=== PATIENT | female | born 1935 | race Caucasian/White ===

== ENCOUNTER 2016-11-02 10:44 | Emergency (ER) | payer MEDICARE ==
[2016-11-02 11:24] LABS: Hematocrit 44 % (35-47); Hemoglobin 14.5 g/dl (12.0-16.0); Mean Corpuscular HGB Conc 33 g/dl (31-36); Mean Corpuscular Hemoglobin 29 pg (27-31); Mean Corpuscular Volume 88 fL (80-97); Mean Platelet Volume 10 um3 (7.4-10.4); Red Blood Count 5.05 10^6/ul (4.0-5.4); Red Cell Distribution Width 14 % (10.5-15)
[2016-11-02 11:34] LABS: BUN/Creatinine Ratio 16.7 (8-20); Calcium 9.1 mg/dL (8.6-10.3); EGFR African American 99.7 (>60); EGFR Non-African American 77.5 (>60); Globulin 3.4 g/dL (2-4); Magnesium 2.1 mg/dL (1.9-2.7); Potassium 4.3 mmol/L (3.5-5.0); Total Bilirubin 0.4 mg/dL (0.2-1.0); Total Protein 7.4 g/dL (6.4-8.9)
[2016-11-02 11:36] LABS: Troponin I 0.01 ng/mL (<0.04)
--- NOTE | 2016-11-02 11:38 | RAD ---
INDICATION: Head injury. COMPARISON: There is is made with a prior CT of the brain from December 01, 2014. TECHNIQUE: Contiguous axial sections of the brain were obtained from the skull base to the vertex without contrast. FINDINGS: The ventricles, cisterns and sulci are enlarged consistent with diffuse atrophy. There are small areas of decreased density in the subcortical and periventricular white matter suggestive of mild chronic small vessel ischemic changes. No other focal abnormality or mass effect is seen. There is no evidence for hemorrhage. No significant focal osseous abnormality is seen. The visualized portion of the paranasal sinuses and mastoid air cells appear clear. IMPRESSION: NO EVIDENCE FOR ACUTE INTRACRANIAL ABNORMALITY.
--- NOTE | 2016-11-02 11:53 | RAD ---
INDICATION: Cough. COMPARISON: There are no prior studies available for comparison. TECHNIQUE: Dual-energy PA and lateral views of the chest were obtained. FINDINGS: The heart is within normal limits in size. Mediastinal and hilar contours appear within normal limits. The lungs are clear. No pleural effusion is present. IMPRESSION: NO EVIDENCE FOR ACTIVE CARDIOPULMONARY DISEASE.
[2016-11-02] MEDS ORDERED: NS 0.9% 1000 ML* 1,000 ML IV ONE (11:57)
[2016-11-02 12:16] LABS: TSH (Thyroid Stimulating Horm) 1.33 mcIU/mL (0.34-5.60)
[2016-11-02 12:16] LABS: Urine Bacteria Absent (Absent); Urine Bilirubin Negative (Negative); Urine Glucose Negative (Negative); Urine Nitrite Negative (Negative)
[2016-11-02 14:07] VITALS: BP 135/55
--- NOTE | 2016-11-02 14:07 | ED ---
Jose Garcia SooYoung, scribed for Nathan Guillen MD on 11/02/16 at 1126 . Syncope/Near Syncope - HPI Summary HPI Summary: An 81 y/o F presents to ED with SARABIA onset three days ago. Pt had a unwitnessed syncopal episode with LOC three days ago. Pt states that she woke up at approx 0500 to use the bathroom, and she regained consciousness and was on the floor. After coming to, sx included vomiting, SARABIA. She denies nausea prior to syncope. She's been resting for the past few days, but is still experiencing SARABIA, n/v, soreness and bruising of L hip. According to daughter, pt also complained of "heaviness" in her head, and visual changes. Pt has baseline stiff neck due to her RA. - History Of Current Complaint Chief Complaint: EDSyncope Time Seen by Provider: 11/02/16 10:57 Hx Obtained From: Patient, Family/Advertising Traffic Manager Onset/Duration: Sudden Onset, Still Present - n/v, SARABIA, Resolved - syncope Timing: Constant - n/v, SARABIA Context: Unwitnessed, Loss Of Consciousness Activity At Onset: At Rest Associated Signs And Symptoms: Vomiting, Other - POS: pain and bruising of L hip , visual changes - Allergies/Home Medications Allergies/Adverse Reactions: Allergies Allergy/AdvReac Type Severity Reaction Status Date / Time Sulfa Drugs Allergy Severe Unknown Verified 11/01/13 12:00 Reaction Details Fentanyl Allergy Unknown Verified 11/01/13 12:00 Reaction Details Lisinopril Allergy Coughing Verified 11/01/13 12:03 Ondansetron [From Zofran] Allergy Unknown Verified 11/01/13 12:00 Reaction Details PMH/Surg Hx/FS Hx/Imm Hx Previously Healthy: No Endocrine/Hematology History: Reports: Hx Anemia - MANY YEARS AGO Denies: Hx Diabetes Cardiovascular History: Reports: Hx Hypertension Denies: Hx Pacemaker/ICD, Other Cardiovascular Problems/Disorders Respiratory History: Denies: Hx Asthma, Other Respiratory Problems/Disorders GI History: Denies: Other GI Disorders History: Denies: Hx Dialysis, Hx Renal Disease Musculoskeletal History: Reports: Hx Arthritis - ALL OVER, Hx Rheumatoid Arthritis Denies: Other Musculoskeletal History Sensory History: Reports: Hx Cataracts - SURGERY RIGHT EYE, Hx Contacts or Glasses - GLASSES, Hx Glaucoma Denies: Hx Hearing Aid Opthamlomology History: Reports: Hx Cataracts - SURGERY RIGHT EYE, Hx Contacts or Glasses - GLASSES, Hx Glaucoma Neurological History: Reports: Other Neuro Impairments/Disorders - BLURRED VISION LEFT EYE Psychiatric History: Denies: Hx Panic Disorder - Cancer History Hx Chemotherapy: No Hx Radiation Therapy: No - Surgical History Surgery Procedure, Year, and Place: veins stripped bilat legs;. hysterectomy;. cataract RIGHT EYE. PLASTIC TEAR DUCT RIGHT EYE - DR. 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 ANY METAL ASPECT OF IMPLANT; PT CLEARED. FOR MRI VIA ORBIT X-RAYS 08/26/13. 1944, RIGHT ARM FX Hx Anesthesia Reactions: - N/V Infectious Disease History: No Infectious Disease History: Reports: Hx Shingles Denies: History Other Infectious Disease, Traveled Outside the in Last 30 Days - Family History Known Family History: Positive: Other - POS: breast CA, anaesthesia reaction (n/ v) - Social History Occupation: Retired Lives: With Family Alcohol Use: None Hx Substance Use: No Substance Use Type: Reports: None Review of Systems Positive: Other - pos: "visual changes" unspecified per daughter Positive: Vomiting, Nausea Positive: Other - pos: soreness, bruising of L hip Positive: Headache, Syncope All Other Systems Reviewed And Are Negative: Yes Physical Exam Triage Information Reviewed: Yes Vital Signs On Initial Exam: Initial Vitals Temp Pulse Resp BP Pulse Ox 98.7 F 67 15 140/65 97 11/02/16 10:46 11/02/16 10:46 11/02/16 10:46 11/02/16 10:46 11/02/16 10:46 Vital Signs Reviewed: Yes Appearance: Positive: Well-Appearing, No Pain Distress Skin: Positive: Warm, Skin Color Reflects Adequate Perfusion, Dry Head/Face: Positive: Normal Head/Face Inspection Eyes: Positive: Normal ENT: Positive: Normal ENT inspection Neck: Positive: Supple, Nontender Respiratory/Lung Sounds: Positive: Clear to Auscultation, Breath Sounds Present Cardiovascular: Positive: RRR Musculoskeletal: Positive: Normal, Other - POS: ECCYHMOSIS TO L BUTTOCK Neurological: Positive: Normal Psychiatric: Positive: Normal, Affect/Mood Appropriate Diagnostics - Vital Signs Vital Signs Temp Pulse Resp BP Pulse Ox 11/02/16 10:46 98.7 F 67 15 140/65 97 - Laboratory Lab Results: Lab Results 11/02/16 11/02/16 11/02/16 Range/Units 11:10 11:10 11:10 WBC 5.0 (3.5-10.8) 10^3/ul RBC 5.05 (4.0-5.4) 10^6/ul Hgb 14.5 (12.0-16.0) g/dl Hct 44 (35-47) % MCV 88 (80-97) fL MCH 29 (27-31) pg MCHC 33 (31-36) g/dl RDW 14 (10.5-15) % Plt Count 210 (150-450) 10^3/ul MPV 10 (7.4-10.4) um3 Neut % (Auto) 50.1 (38-83) % Lymph % (Auto) 31.6 (25-47) % [place] % (Auto) 16.8 H (1-9) % Eos % (Auto) 0.5 (0-6) % Baso % (Auto) 1.0 (0-2) % Absolute Neuts (auto) 2.5 (1.5-7.7) 10^3/ul Absolute Lymphs (auto) 1.6 (1.0-4.8) 10^3/ul Absolute Monos (auto) 0.8 (0-0.8) 10^3/ul Absolute Eos (auto) 0 (0-0.6) 10^3/ul Absolute Basos (auto) 0 (0-0.2) 10^3/ul Absolute Nucleated RBC 0.01 10^3/ul Nucleated RBC % 0.1 INR (Anticoag Therapy) (0.89-1.11) Sodium 134 (133-145) mmol/L Potassium 4.3 (3.5-5.0) mmol/L Chloride 99 L (101-111) mmol/L Carbon Dioxide 29 (22-32) mmol/L Anion Gap 6 (2-11) mmol/L BUN 12 (6-24) mg/dL Creatinine 0.72 (0.51-0.95) mg/dL Est GFR ( Amer) 99.7 (>60) Est GFR (Non-Af Amer) 77.5 (>60) BUN/Creatinine Ratio 16.7 (8-20) Glucose 97 (70-100) mg/dL Lactic Acid 0.9 (0.5-2.0) mmol/L Calcium 9.1 (8.6-10.3) mg/dL Magnesium 2.1 (1.9-2.7) mg/dL Total Bilirubin 0.40 (0.2-1.0) mg/dL AST 24 (13-39) U/L ALT 15 (7-52) U/L Alkaline Phosphatase 55 (34-104) U/L Troponin I 0.01 (<0.04) ng/mL Total Protein 7.4 (6.4-8.9) g/dL Albumin 4.0 (3.2-5.2) g/dL Globulin 3.4 (2-4) g/dL Albumin/Globulin Ratio 1.2 (1-3) TSH 1.33 (0.34-5.60) mcIU/mL Urine Color Urine Appearance Urine pH (5-9) Ur Specific [place] (1.010-1.030) Urine Protein (Negative) Urine Ketones (Negative) Urine Blood (Negative) Urine Nitrate (Negative) Urine Bilirubin (Negative) Urine Urobilinogen (Negative) Ur Leukocyte Esterase (Negative) Urine WBC (Auto) (Absent) Urine RBC (Auto) (Absent) Ur Squamous Epith Cells (Absent) Urine Bacteria (Absent) Urine Glucose (Negative) Urine Ascorbic Acid (Negative) 11/02/16 11/02/16 Range/Units 11:10 12:00 WBC (3.5-10.8) 10^3/ul RBC (4.0-5.4) 10^6/ul Hgb (12.0-16.0) g/dl Hct (35-47) % MCV (80-97) fL MCH (27-31) pg MCHC (31-36) g/dl RDW (10.5-15) % Plt Count (150-450) 10^3/ul MPV (7.4-10.4) um3 Neut % (Auto) (38-83) % Lymph % (Auto) (25-47) % [place] % (Auto) (1-9) % Eos % (Auto) (0-6) % Baso % (Auto) (0-2) % Absolute Neuts (auto) (1.5-7.7) 10^3/ul Absolute Lymphs (auto) (1.0-4.8) 10^3/ul Absolute Monos (auto) (0-0.8) 10^3/ul Absolute Eos (auto) (0-0.6) 10^3/ul Absolute Basos (auto) (0-0.2) 10^3/ul Absolute Nucleated RBC 10^3/ul Nucleated RBC % INR (Anticoag Therapy) 2.25 H (0.89-1.11) Sodium (133-145) mmol/L Potassium (3.5-5.0) mmol/L Chloride (101-111) mmol/L Carbon Dioxide (22-32) mmol/L Anion Gap (2-11) mmol/L BUN (6-24) mg/dL Creatinine (0.51-0.95) mg/dL Est GFR ( Amer) (>60) Est GFR (Non-Af Amer) (>60) BUN/Creatinine Ratio (8-20) Glucose (70-100) mg/dL Lactic Acid (0.5-2.0) mmol/L Calcium (8.6-10.3) mg/dL Magnesium (1.9-2.7) mg/dL Total Bilirubin (0.2-1.0) mg/dL AST (13-39) U/L ALT (7-52) U/L Alkaline Phosphatase (34-104) U/L Troponin I (<0.04) ng/mL Total Protein (6.4-8.9) g/dL Albumin (3.2-5.2) g/dL Globulin (2-4) g/dL Albumin/Globulin Ratio (1-3) TSH (0.34-5.60) mcIU/mL Urine Color Yellow Urine Appearance Clear Urine pH 5.0 (5-9) Ur Specific [place] 1.020 (1.010-1.030) Urine Protein 1+(30 mg/dl) H (Negative) Urine Ketones Trace H (Negative) Urine Blood 1+ H (Negative) Urine Nitrate Negative (Negative) Urine Bilirubin Negative (Negative) Urine Urobilinogen Negative (Negative) Ur Leukocyte Esterase 2+ H (Negative) Urine WBC (Auto) 2+(11-20/hpf) H (Absent) Urine RBC (Auto) 1+(3-5/hpf) H (Absent) Ur Squamous Epith Cells Present H (Absent) Urine Bacteria Absent (Absent) Urine Glucose Negative (Negative) Urine Ascorbic Acid * H (Negative) Result Diagrams: 11/02/16 11:10 11/02/16 11:10 Lab Statement: Any lab studies that have been ordered have been reviewed, and results considered in the medical decision making process. - Radiology CXR Xray Interpretation: No Acute Changes - IMPRESSION: No evidence for active cardiopulmonary dz Radiology Interpretation Completed By: Radiologist - CT BRAIN CT CT Interpretation: No Acute Changes - IMPRESSION: No evidence for acute intra- cranial abnormality CT Interpretation Completed By: Radiologist - EKG 1 EKG Rhythm: Sinus Rhythm ST Segment: Non-Specific Re-Evaluation - Re-Evaluation 1 Re-Evaluation Time: 13:53 Change: Improved Comment: Discussing results with pt. Course/Dx Course Of Treatment: Ms. Bennett had a syncopal episode three days ago and woke up with N/V and a headache which she has had since. She was orthostatic and felt better after fluids. Her W/U was normal except for an equivocal urine that has been sent for C&S. She refused any antiemetic at D/C. - Diagnoses Provider Diagnoses: Dehydration, Head injury, Syncope and collapse Discharge - Discharge Plan Condition: Stable Disposition: HOME Patient Education Materials: Dehydration (ED), Head Injury (ED) Referrals: Davian GARCIAPYessy [Primary Care Provider] - Additional Instructions: Please return to ED if you experience new or worsening symptoms. The documentation as recorded by the Jose payan SooYoung accurately reflects the service I personally performed and the decisions made by me, Nathan Guillen MD.
== END 2016-11-02 14:16 | disposition home or self-care (01) ==
LOC: ED 10:44
DX: S09.90XA Unspecified injury of head, initial encounter (principal); R55 Syncope and collapse; R51 Headache; R11.2 Nausea with vomiting, unspecified; E86.0 Dehydration; X58.XXXA Exposure to other specified factors, initial encounter; Y93.9 Activity, unspecified; Y92.9 Unspecified place or not applicable
CPT/HCPCS: 36415; 70450; 71020; 80053; 81003; 81015; 83605; 83735; 84443; 84484; 85025; 85610; 87086; 93005; 96360; 99283

== ENCOUNTER 2017-08-09 11:45 | Emergency (ER) | payer MEDICARE ==
--- NOTE | 2017-08-09 12:13 | ED ---
Lower Extremity - HPI Summary HPI Summary: 82 female presents to ED with complaints of left knee pain that began yesterday after a fall. Patient states she was walking down steps in her garage when she slipped and fell forward onto her knees. States she was able to get up, bear weight and walk, however it worsened the pain. Patient states the pain increased this morning upon waking, is able to walk but causes pain to the front of her knee. Admits to swelling and bruising. Denies any other injuries from the fall. However when patient was attempting to use the bathroom early this morning she was unable due to pain and had to use a waste basket by her bed. She was holding herself up with her arms and hurt her left shoulder from that. States the shoulder pain worsens with movement. No other complaints. Has not taken any medication. Denies hitting head/LOC. Is taking Warfarin. Denies numbness/tingling. Denies abdominal pain, nausea, vomiting. - History of Current Complaint Chief Complaint: EDExtremityLower Stated Complaint: FALL LEFT KNEE PAIN Time Seen by Provider: 08/09/17 12:12 Hx Obtained From: Patient Mechanism Of Injury: Direct Blow Onset of Pain: Minutes Onset/Duration: Worse Since - yesterday Severity Initially: Mild Severity Currently: Moderate Pain Intensity: 7 Pain Scale Used: 0-10 Numeric Timing: Constant Location: Is Discrete @ - anterior left knee Character Of Pain: Sharp, Aching Associated Signs And Symptoms: Positive: Swelling, Bruising, Knee Pain - left Aggravating Factor(s): Standing, Ambulation, Movement - bending, Weight Bearing , Other - palaption Able to Bear Weight: Yes - however painful Legs: 1 - pain - Allergies/Home Medications Allergies/Adverse Reactions: Allergies Allergy/AdvReac Type Severity Reaction Status Date / Time Sulfa Drugs Allergy Severe Unknown Verified 11/01/13 12:00 Reaction Details Fentanyl Allergy Unknown Verified 11/01/13 12:00 Reaction Details Lisinopril Allergy Coughing Verified 11/01/13 12:03 Ondansetron [From Zofran] Allergy Unknown Verified 11/01/13 12:00 Reaction Details PMH/Surg Hx/FS Hx/Imm Hx Endocrine/Hematology History: Reports: Hx Anemia - MANY YEARS AGO Denies: Hx Diabetes Cardiovascular History: Reports: Hx Atrial Fibrillation, Hx Hypertension Denies: Hx Pacemaker/ICD, Other Cardiovascular Problems/Disorders Respiratory History: Denies: Hx Asthma, Other Respiratory Problems/Disorders GI History: Denies: Other GI Disorders History: Denies: Hx Dialysis, Hx Renal Disease Musculoskeletal History: Reports: Hx Arthritis - ALL OVER, Hx Rheumatoid Arthritis Denies: Other Musculoskeletal History Sensory History: Reports: Hx Cataracts - SURGERY RIGHT EYE, Hx Contacts or Glasses - GLASSES, Hx Glaucoma Denies: Hx Hearing Aid Opthamlomology History: Reports: Hx Cataracts - SURGERY RIGHT EYE, Hx Contacts or Glasses - GLASSES, Hx Glaucoma Neurological History: Reports: Other Neuro Impairments/Disorders - BLURRED VISION LEFT EYE Psychiatric History: Denies: Hx Panic Disorder - Cancer History Hx Chemotherapy: No Hx Radiation Therapy: No - Surgical History Surgery Procedure, Year, and Place: veins stripped bilat legs;. hysterectomy;. cataract RIGHT EYE. PLASTIC TEAR DUCT RIGHT EYE - DR. 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 ANY METAL ASPECT OF IMPLANT; PT CLEARED. FOR MRI VIA ORBIT X-RAYS 08/26/13. 1944, RIGHT ARM FX Hx Anesthesia Reactions: - N/V - Immunization History Immunizations Up to Date: Yes Infectious Disease History: No Infectious Disease History: Reports: Hx Shingles Denies: History Other Infectious Disease, Traveled Outside the [place] in Last 30 Days - Family History Known Family History: Positive: Other - POS: breast CA, anaesthesia reaction (n/ v) - Social History Alcohol Use: None Hx Substance Use: No Substance Use Type: Reports: None Smoking Status (MU): Never Smoked Tobacco Review of Systems Constitutional: Negative Cardiovascular: Negative Respiratory: Negative Positive: Arthralgia, Myalgia - left knee, left shoulder , Edema - left Positive: Bruising - left knee Neurological: Negative All Other Systems Reviewed And Are Negative: Yes Physical Exam Triage Information Reviewed: Yes Vital Signs On Initial Exam: Initial Vitals Temp Pulse Resp BP Pulse Ox 99 F 66 18 137/66 96 08/09/17 11:56 08/09/17 11:56 08/09/17 11:56 08/09/17 11:56 08/09/17 11:56 Vital Signs Reviewed: Yes Appearance: Positive: Well-Appearing, No Pain Distress, Well-Nourished Skin: Positive: Warm, Skin Color Reflects Adequate Perfusion, Dry. Negative: Cold, Numb, Pale, Erythema @ Head/Face: Positive: Normal Head/Face Inspection Eyes: Positive: Conjunctiva Clear ENT: Positive: Hearing grossly normal Neck: Positive: Supple, Nontender, No Lymphadenopathy Respiratory/Lung Sounds: Positive: Clear to Auscultation, Breath Sounds Present. Negative: Rales, Rhonchi, Wheezes Cardiovascular: Positive: Normal, RRR, Pulses are Symmetrical in both Upper and Lower Extremities - 2+ radial, <2 sec cap refill. Negative: Murmur, Rub Abdomen Description: Positive: Nontender, Soft Bowel Sounds: Positive: Present Musculoskeletal: Positive: Normal, Limited @ - with flexion of left knee and left shoulder due to pain. shoulder also with abduction, Pain @ - left anterior knee on palpation over tibial tuberosity and patella and with flexion, rest of lower leg non tender and no deformities noted. no crepitus or step off appreciated, Edema Left - knee, diffuse. Negative: Interruption @, Abnormal @ Neurological: Positive: Normal, Sensory/Motor Intact, Alert, Oriented to Person Place, Time, CN Intact II-III, Reflexes Intact, NV Bundle Intact Distally, Abnormal Gait - favoring right side and walking slowly due to injury/pain Diagnostics - Vital Signs Vital Signs Temp Pulse Resp BP Pulse Ox 08/09/17 11:56 99 F 66 18 137/66 96 - Laboratory Lab Statement: Any lab studies that have been ordered have been reviewed, and results considered in the medical decision making process. - Radiology left shoulder Xray Interpretation: No Acute Changes - NO EVIDENCE OF FRACTURE. Radiology Interpretation Completed By: Radiologist - and myself left knee Xray Interpretation: Positive (See Comments) - 1. SMALL JOINT EFFUSION. 2. POSSIBLE INCOMPLETE NONDISPLACED FRACTURE OF THE TIBIAL TUBEROSITY RECOMMEND CLINICAL CORRELATION FOR POINT TENDERNESS. Radiology Interpretation Completed By: Radiologist - and myself Lower Extremity Course/Dx - Course Course Of Treatment: xray obtained and showed possbile non displace tibial tuberosity fracture of left leg, with point tenderness. patient was given knee immobilizer and tylenol and stated it felt much better when walking and bearing weight. Spoke with Dr Rm, hospitalist who stated if able to walk comfortably with immobilizer and pain is under control she can be discharged home. Informed on Warfarin. Patient insisted on going home and that her pain was controlled with tylenol and immobilizer. Given sling to wear for left shoulder as needed for sprain, as xray was negative. normal PE otherwise. normal vitals. will give norco for pain meds as needed as patient is on warfarin. instructed to take just tylenol or just norco for pain as desired. follow up ortho this week. patient aware of worsening signs and symptoms to watch out for and to return. No other complaints or concerns for other etiology at this time. Follow up with PCP as well. RICE and do not remove immobilizer. Repeat xray may be required, patient agrees/understands and all questions answered. Patient wanted ot be discharged home. - Diagnoses Differential Diagnosis/HQI/PQRI: Positive: Fracture (Closed), Sprain, Strain Provider Diagnoses: Fracture of tibial tuberosity, Sprain of left shoulder - Physician Notifications Discussed Care Of Patient With: Dr Rm if pain controlled and able towalk comofortably can be discharged - if not, would admit Time Discussed With Above Provider: 13:30 Discharge - Discharge Plan Condition: Stable Disposition: HOME Prescriptions: HYDROcodone/ACETAMIN 5-325 MG* [[place] 5-325 TAB*] 1 tab PO Q8H PRN #6 tab MDD 2 PRN Reason: Pain Patient Education Materials: Leg Fracture (ED), Shoulder Sprain (ED) Referrals: Davian VALDOVINOS FASHION DIRECTOR,Yessy [Primary Care Provider] - Additional Instructions: Take prescribed medication as needed for extreme pain, as needed. Do not drive while taking this medication. You may also just take tylenol for pain, however do not take both at the same time. Refrain from walking often, elevate when sitting/laying. Ice and use walker. Do not remove knee immobilizer. Any new or worsening symptoms please seek medical attention immediately and return to ED, as we discussed. Follow up with Ortho, call to make an appointment to be seen for further evaluation and follow up for both knee and shoulder.
--- NOTE | 2017-08-09 12:59 | RAD ---
INDICATION: Left shoulder injury. TECHNIQUE: 4 views of the left shoulder were obtained. FINDINGS: The bones present. Again in normal alignment. No fracture is seen. There is calcification adjacent to the superior lateral aspect of the humeral head. 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 IMPRESSION: NO EVIDENCE OF FRACTURE.
--- NOTE | 2017-08-09 13:02 | RAD ---
INDICATION: Left knee injury. TECHNIQUE: 4 views of the left knee were obtained. FINDINGS: The bones are in normal alignment. There is a small joint effusion present. On the lateral view there is a radiolucent line extending through the tibial tuberosity possibly representing a nondisplaced incomplete fracture. There is mild to moderate osteoarthritic change in the patellofemoral compartment. IMPRESSION: 1. SMALL JOINT EFFUSION. 2. POSSIBLE INCOMPLETE NONDISPLACED FRACTURE OF THE TIBIAL TUBEROSITY RECOMMEND CLINICAL CORRELATION FOR POINT TENDERNESS.
[2017-08-09] MEDS ORDERED: Acetaminophen TAB* 325 MG PO ONE (13:12)
[2017-08-09 14:07] VITALS: BP 133/76
== END 2017-08-09 14:06 | disposition home or self-care (01) ==
LOC: ED 11:45
DX: S82.152A Displaced fracture of left tibial tuberosity, initial encounter for closed fracture (principal); S43.402A Unspecified sprain of left shoulder joint, initial encounter; M25.562 Pain in left knee; W10.9XXA Fall (on) (from) unspecified stairs and steps, initial encounter; Y92.89 Other specified places as the place of occurrence of the external cause; Z79.01 Long term (current) use of anticoagulants; Z86.79 Personal history of other diseases of the circulatory system
CPT/HCPCS: 99282; A9270-GY